=== PATIENT | female | born 1960 | race Hispanic/Latino ===

== ENCOUNTER 2022-01-07 21:54 | Emergency (ER) | payer OTHER ==
[~2022-01-07] VITALS: Ht 154.9 cm; Wt 62.1 kg
[~2022-01-07 21:54] MED LIST: DIOVAN160 MG PO
[2022-01-07] MEDS ORDERED: AMOXICILLIN/CLAVULANATE K 875 MG TAB PO STA (23:22)
[2022-01-07] MEDS ORDERED: TRAMADOL HCL 50 MG TAB PO ONE (23:30)
[2022-01-07] MEDS ORDERED: TRAMADOL HCL 50 MG TAB ONE (23:45)
[2022-01-07] MEDS ORDERED: AMOXICILLIN/CLAVULANATE K 875 MG TAB ONE (23:45)
[2022-01-07] MEDS ORDERED: AMOX TR-K CLV1 EAC2 PO (23:53)
[2022-01-07] MEDS ORDERED: HYDROCODON-ACE1 EA12 PO (23:55)
[2022-01-08 00:10] VITALS: BP 149/70
== END 2022-01-08 00:10 | disposition home or self-care (01) ==
LOC: FSED 22:20
DX: K02.9 Dental caries, unspecified (principal); E11.9 Type 2 diabetes mellitus without complications; I10 Essential (primary) hypertension; E78.5 Hyperlipidemia, unspecified; F41.9 Anxiety disorder, unspecified
CPT/HCPCS: 99282

== ENCOUNTER 2022-05-03 06:06 | Emergency (ER) | payer OTHER ==
[~2022-05-03] VITALS: Ht 157.5 cm; Wt 60.3 kg
[~2022-05-03 06:06] MED LIST changes: +AMOX TR-K CLV1 EAC2 PO; +HYDROCODON-ACE1 EA12 PO
[2022-05-03] MEDS ORDERED: AZITHROMYCIN250 MG PO (07:43)
[2022-05-03] MEDS ORDERED: BENADRYL25 M1 PO (07:43)
[2022-05-03] MEDS ORDERED: FLONASE ALLERG9.9 ML INH (07:43)
[2022-05-03] MEDS ORDERED: BENZONATATE100 MG PO (07:43)
== END 2022-05-03 07:51 | disposition home or self-care (01) ==
LOC: FSED 07:51
DX: R50.9 Fever, unspecified (principal); J06.9 Acute upper respiratory infection, unspecified; R05.9 Cough, unspecified; I10 Essential (primary) hypertension; E11.9 Type 2 diabetes mellitus without complications; E78.5 Hyperlipidemia, unspecified; E78.00 Pure hypercholesterolemia, unspecified; F41.9 Anxiety disorder, unspecified
CPT/HCPCS: 83518; 87400; 99283

== ENCOUNTER 2022-09-23 20:13 | Emergency (ER) | payer OTHER ==
[~2022-09-23] VITALS: Ht 157.5 cm; Wt 56.2 kg
[~2022-09-23 20:13] MED LIST changes: +AZITHROMYCIN250 MG PO; +BENADRYL25 M1 PO; +BENZONATATE100 MG PO; +FLONASE ALLERG9.9 ML INH
[2022-09-23] MEDS ORDERED: SODIUM CHLORIDE 0.9% 1000ML 1,000 ML IV STA (20:55)
[2022-09-23] MEDS ORDERED: ONDANSETRON HCL INJ 2MG/ML 2ML 2 MG/ML VIAL IV ONE (21:00)
[2022-09-23] MEDS ORDERED: FAMOTIDINE 20 MG/2 ML VIAL IV ONE (21:00)
[2022-09-23] MEDS ORDERED: SODIUM CHLORIDE 0.9% 1000ML 1,000 ML ONE (21:02)
[2022-09-23] MEDS ORDERED: ONDANSETRON HCL INJ 2MG/ML 2ML 2 MG/ML VIAL ONE (21:03)
[2022-09-23] MEDS ORDERED: ONDANSETRON ODT4 MG PO (21:34)
[2022-09-23] MEDS ORDERED: FAMOTIDINE20 MG PO (21:34)
[2022-09-23 22:23] VITALS: BP 129/74
== END 2022-09-23 21:41 | disposition home or self-care (01) ==
LOC: FSED 20:46
DX: R11.0 Nausea (principal); K52.9 Noninfective gastroenteritis and colitis, unspecified; R10.32 Left lower quadrant pain; E11.65 Type 2 diabetes mellitus with hyperglycemia; I10 Essential (primary) hypertension; E78.5 Hyperlipidemia, unspecified; E78.00 Pure hypercholesterolemia, unspecified; F41.9 Anxiety disorder, unspecified
CPT/HCPCS: 74176; 99284; J2405; J7030